=== PATIENT | female | born 1945 | race Caucasian/White ===

== ENCOUNTER 2018-07-16 10:00 | Outpatient (RCR) ==
--- NOTE | 2018-07-06 16:53 | RS.OPPTEV2 ---
Date of Note: 07/02/18 Visit #: 1 Number of visits approved by Insurance: NA Date of Evaluation: 07/02/18 Payer Source: MEDICARE Surgery Performed?: No Treatment Diagnosis: Back pain History of Condition/Mechanism of Injury:: Mrs. Kc reports back pain started approximately two months ago. Reports no known injury. Prior Level of Function.....Patient was independent with: ADL's, Self Care, Caregiving, Ambulation/Mobility, Community Integration/Access Functional Limitations: Sleep, Self Care, ADL's, Reaching, Pushing, Pulling, Lifting, Carrying, Sitting, Standing, Bending, Squatting, Ambulation, Community Access/Integration Current Subjective/complaints:: Mrs. Kc reports pain just started one morning when she was getting up out of bed. States her pain has gotten a little better since it first started. States it is like a "grabbing pain". States she can move a certain way and the pain with grab and then go away. She reports difficulty turning over in bed, getting up and down from a chair or bed. States sneezing or coughing reproduces the pain. She reports she has pain with standing and walking. She has tried a heating pad, without any benefit. Reports her pain is worse in the evening. She is taking a muscle relaxant and an anti-inflammatory. Treatment Side (optional): Right Medical History Medical History: Hypertension, Arthritis ("everywhere") Surgical History Comments:: Bilateral TKA Smoking Status: Former smoker Hx Home Medications: muscle relaxant, anti-inflammatory Patient's Goals: Her goal is to get relief of mid back pain. Pain Assessment - Pain Description Pain Location: right mid to lower thoracic spine Pain Description: Sharp Pain Description: "grabbing pain" Current Pain Intensity: 7/10 Worst Pain Intensity: 10/10 Functional Outcome Measure Oswestry LBP: 64 - G Codes & Severity Modifier G Codes & Modifier: NA Source of G Code score: NA Observation - Observation Posture: Forward Head, Rounded Shoulders, Increased Lumbar Lordosis Gait - Gait Pattern Gait Comments: Patient ambulates without an assistive device, independently with an antalgic gait. She demonstrates bilateral trunk lean with ambulation. She has to stop and holds to right mid-low back while walking in department. She demonstrates difficulty getting up and down from treatment table due to reports of severe pain in the right thoracic region. General Range of Motion: UE and LE AROM is WFL's. Rotation at the thoracic spine is more painful to her right. Also lateral flexion of the thoracic spine is more painful to the right. Muscle Strength: Bilateral hip strength 4 to 4+/5. Bilateral knees 4+/5, ankle 4+/5. Palpation Comments:: Marked tenderness with palpation to the right lower thoracic paraspinals and with Central PA's over the spinous processes of the mid to lower thoracic vertebrae. Demonstrates moderate increased muscle tone in bilateral lower thoracic and upper lumbar paraspinals. Sensation - Sensation Right Lower Extremity: Intact/Normal Left Lower Extremity: Intact/Normal - Treatment Modality: Ultrasound Parameters/Method Applied: X 12 mins to right thoracic paraspinals @ 1.5 w/cm continuous Patient Position: Left Sidelying Comments: Patient reports severe pain getting up and down from treatment table. Interventions - Exercise/Activities/Manual Therapy Exercises/Activities: None given today. following US, patient was advised to try ice pack/cold pack to her back over the weekend to see if it helps. Manual Therapy: NA - Charges Timed Code Treatment Minutes: 12 mins Total Treatment Time: 49 mins Procedures billed for this date of service:: DIEGO Zamora, US EVALUATION COMPLEXITY LEVEL EVALUATION COMPLEXITY LEVEL: HISTORY: Low, EXAM OF BODY SYSTEMS: Low, CLINICAL PRESENTATION: Low, CLINICAL DECISION MAKING: Low Assessment Assessment: Mrs. Kc presents to therapy with reports of mid right back pain. She reports severe, grabbing pain with certain movements. She is having difficulty walking very far and is unable to tolerate much activity due to this pain. She demonstrates signficant tenderness with palpation at the right mid- lower thoracic spine and paraspinals, along with moderate increased muscle guarding. She demonstrates potential to get relief of symptoms with modalities to reduce tenderness and muscle tone, and progressed to stretching exercises to resolve her pain. Patient Education: Education of diagnosis, Body/Joint mechanics, Activity Modification, Education of Plan of Care Rehab Potential: Good Short Term Goals Goal #1: Pt independent and compliant with HEP. Goal to be met by: 07/20/18 Goal #2: Tenderness along right thoracic paraspinals decreased to minimal. Goal to be met by: 07/20/18 Goal #3: Pt able to get up and down from treatment table w/ minimal difficulty. 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 Goal to be met by: 08/10/18 Goal #2: Score on Oswestry LBP scale improved to 40. Goal to be met by: 08/10/18 Goal #3: Pt able to walking community distances w/ minimal to no back pain. Goal to be met by: 08/10/18 Goal #4: Pt able to perform all selfcare and ADL's w/ min back pain. 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
--- NOTE | 2018-07-08 16:10 | RS.OPPTDN ---
Subjective Date of Note: 07/08/18 Visit #: 2 Number of visits approved by Insurance: na Date of Evaluation: 07/02/18 Payer Source: MEDICARE Treatment Diagnosis: Back pain Current Subjective/complaints:: Reports pain continues to limit her mobility and activity level. States she was unable to sleep after last session that aggravated back pain. Patient reports she is unable to clean her house and she sitting in a chair most of the day. Pain Assessment - Pain Description Pain Location: right mid and lowback Pain Description: Sharp, Aching Current Pain Intensity: mod to high - Treatment Modality: US with ES (Comb.) Parameters/Method Applied: [id number] US at 1.5w/cm2 and Estim at 13p.v. to the right mid and lower lumbar paraspinals. Patient Position: Left Sidelying - Heat/Cryotherapy Treatment: Hot Pack ([id number] to the lowback prior to USCOM. Patient in sitting. ) Interventions - Exercise/Activities/Manual Therapy Exercises/Activities: na Manual Therapy: 24mins soft tissue mobilization and myofascial massage to the right mid thoracic to the lumbar paraspinals with patient in left side-lying. Progressed to DTM with patient guarded at times due to pain. Patient unable to tolerate trigger point release due to pain. Total minutes of Manual Therapy: 24mins - Charges Timed Code Treatment Minutes: 38mins Total Treatment Time: 58mins Procedures billed for this date of service:: HP, USCOM, MT2 Assessment: Patient with pain that is limiting her functional activity level. She was unable to progress to exercise today. Patient Education: Body/Joint mechanics Short Term Goals Goal #1: Pt independent and compliant with HEP. Goal to be met by: 07/20/18 Goal #2: Tenderness along right thoracic paraspinals decreased to minimal. Goal to be met by: 07/20/18 Goal #3: Pt able to get up and down from treatment table w/ minimal difficulty. Goal to be met by: 07/20/18 Goal #4: Right shoulder Passive ER WFL's. 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 Goal to be met by: 08/10/18 Goal #2: Score on Oswestry LBP scale improved to 40. Goal to be met by: 08/10/18 Goal #3: Pt able to walking community distances w/ minimal to no back pain. Goal to be met by: 08/10/18 Goal #4: Pt able to perform all selfcare and ADL's w/ min back pain. Goal to be met by: 08/10/18 Plan Dates of Picking Crew Supervisor Goals: 08/10/18 Expiration date of current Insurance Approval:: 08/10/18 PLAN: Continue modalities and manual therapy, working toward exercise as tolerated.
--- NOTE | 2018-07-08 16:41 | RS.OPPTDN ---
Subjective Date of Note: 07/06/18 Visit #: 2 Number of visits approved by Insurance: NA Date of Evaluation: 07/02/18 Payer Source: MEDICARE Treatment Diagnosis: Back pain Current Subjective/complaints:: Mrs. Kc reports continued right sided back pain. States walking very far is "killing me". States pain still grabs her with movement, sneezing, or coughing. Reports significant pain with palpation and manual treatment during treatment today. Pain Assessment - Pain Description Pain Location: right lower thoracic spine Pain Description: Sharp Current Pain Intensity: mod to severe when pain hits her - Treatment Modality: Ultrasound Parameters/Method Applied: X 12 mins to right mid thoracic to upper lumbar paraspinals @ 1.8 w/cm2 continuous, then following manual therapy another 5 mins @ .8 w/cm2 continuous. 17 mins total Patient Position: Left Sidelying Interventions - Exercise/Activities/Manual Therapy Exercises/Activities: None given today. following US, patient was advised to try ice pack/cold pack to her back over the weekend to see if it helps. Manual Therapy: X 10 mins trigger point work and attempted DTM to right thoracic and upper lumbar paraspinals. Patient very guarded and reports significant pain at 2-3 different points to the right of the mid -lower thoracic spine over the paraspinals. - Charges Timed Code Treatment Minutes: 27 mins Total Treatment Time: 27 mins Procedures billed for this date of service:: US, manual therapy Assessment: Shalonda continues to report grabbing pain at the right thoracic spine. She exhibited difficulty tolerating manual therapy to that area due to tenderness along the thoracic paraspinals. I will see how she felt following today's treatment to determine how we will contine her treatment on her next visit. Patient Education: Education of diagnosis, Body/Joint mechanics, Home Safety, Activity Modification, Education of Plan of Care Short Term Goals Goal #1: Pt independent and compliant with HEP. Goal to be met by: 07/20/18 Goal #2: Tenderness along right thoracic paraspinals decreased to minimal. Goal to be met by: 07/20/18 Goal #3: Pt able to get up and down from treatment table w/ minimal difficulty. Goal to be met by: 07/20/18 Goal #4: Right shoulder Passive ER WFL's. Goal to be met by: 06/17/13 Progress towards Goal:: Met [facility] Goals Goal #1: Pt knows HEP and to continue ex's to maintain functional level at D/C. Goal to be met by: 08/10/18 Goal #2: Score on Oswestry LBP scale improved to 40. Goal to be met by: 08/10/18 Goal #3: Pt able to walking community distances w/ minimal to no back pain. Goal to be met by: 08/10/18 Goal #4: Pt able to perform all selfcare and ADL's w/ min back pain. Goal to be met by: 08/10/18 Plan Dates of [facility] Goals: 08/10/18 Expiration date of current Insurance Approval:: NA PLAN: Continue treatment with modalities and manual therapy and exercises as tolerated.
--- NOTE | 2018-07-13 15:01 | RS.OPPTDN ---
Subjective Date of Note: 07/13/18 Visit #: 4 Number of visits approved by Insurance: na Date of Evaluation: 07/02/18 Payer Source: MEDICARE Treatment Diagnosis: Back pain Current Subjective/complaints:: Patient reports "feeling good" the entire day following last treatment, and sleeping all through the night that night. Reports pain increased again the next morning, but she is hopeful treatment will continue to help. Pain Assessment - Pain Description Pain Location: right lower thoracic and upper lumbar paraspinals and into flank area Current Pain Intensity: moderate, increases with movement - Treatment Modality: Electrical Stim Unattended Parameters/Method Applied: [id number] HVGC to 115-125p.v. with 4 large pads cross current to the right lower thoracic and upper lumbar paraspinals with HP prior to MT. Patient Position: Sitting - Heat/Cryotherapy Treatment: Hot Pack (with Extim ) Interventions - Exercise/Activities/Manual Therapy Exercises/Activities: NA Manual Therapy: [id number] Soft tissue and attempted DTM. Increased trigger point work along the right lumbar paraspinals. Multiple points along the right lumbar and low thoracic paraspinals that are painful again today. Total minutes of Manual Therapy: 26mins - Charges Timed Code Treatment Minutes: 26mins Total Treatment Time: 48mins Procedures billed for this date of service:: HP, Estim unattended, MT2 Assessment: Patient responded well to last treatment with report of decreased pain and ability to sleep all night. Patient Education: Education of diagnosis, Body/Joint mechanics, Home Safety, Activity Modification Short Term Goals Goal #1: Pt independent and compliant with HEP. Goal to be met by: 07/20/18 Goal #2: Tenderness along right thoracic paraspinals decreased to minimal. Goal to be met by: 07/20/18 Goal #3: Pt able to get up and down from treatment table w/ minimal difficulty. Goal to be met by: 07/20/18 Goal #4: Right shoulder Passive ER WFL's. 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 Goal to be met by: 08/10/18 Goal #2: Score on Oswestry LBP scale improved to 40. Goal to be met by: 08/10/18 Goal #3: Pt able to walking community distances w/ minimal to no back pain. Goal to be met by: 08/10/18 Goal #4: Pt able to perform all selfcare and ADL's w/ min back pain. Goal to be met by: 08/10/18 Plan Dates of Hand Former Helper Goals: 08/10/18 Expiration date of current Insurance Approval:: 08/10/18 PLAN: Continue and progress toward HEP to increase functional activity level.
--- NOTE | 2018-07-16 16:27 | RS.OPPTDN ---
Subjective Date of Note: 07/16/18 Visit #: 5 Number of visits approved by Insurance: na Date of Evaluation: 07/02/18 Payer Source: MEDICARE Treatment Diagnosis: Back pain Current Subjective/complaints:: Patient reports last session reduced her pain all evening and through the next day. States she was able to tolerate manual therapy better today. Pain Assessment - Pain Description Pain Location: right mid to lowback Pain Description: Tightness, Sharp, Aching Current Pain Intensity: 8 - Treatment Modality: Electrical Stim Unattended Parameters/Method Applied: [id number] HVGC to 170p.v. to bilateral lower lumbar paraspinals and lower right thoracic paraspinals with HP prior to MT. Patient Position: Sitting - Heat/Cryotherapy Treatment: Hot Pack (with Estim) Interventions - Exercise/Activities/Manual Therapy Exercises/Activities: NA Manual Therapy: [id number] Soft tissue and attempted DTM. Trigger point work along the lumbar paraspinals, with focus on right. Total minutes of Manual Therapy: 28mins - Charges Timed Code Treatment Minutes: 28mins Total Treatment Time: 50mins Procedures billed for this date of service:: HP, Estim unattended, MTx2 Assessment: Patient reporting improvement in ability to sleep at night and one day of pain reduction following last treatment. Short Term Goals Goal #1: Pt independent and compliant with HEP. Goal to be met by: 07/20/18 Goal #2: Tenderness along right thoracic paraspinals decreased to minimal. Goal to be met by: 07/20/18 Progress towards Goal:: Progressing Goal #3: Pt able to get up and down from treatment table w/ minimal difficulty. Goal to be met by: 07/20/18 Goal #4: Right shoulder Passive ER WFL's. Goal to be met by: 06/17/13 Progress towards Goal:: Met [facility] Goals Goal #1: Pt knows HEP and to continue ex's to maintain functional level at D/C. Goal to be met by: 08/10/18 Goal #2: Score on Oswestry LBP scale improved to 40. Goal to be met by: 08/10/18 Goal #3: Pt able to walking community distances w/ minimal to no back pain. Goal to be met by: 08/10/18 Progress towards goal: Progressing Goal #4: Pt able to perform all selfcare and ADL's w/ min back pain. Goal to be met by: 08/10/18 Plan Dates of Senior Living Goals: 08/10/18 Expiration date of current Insurance Approval:: 08/10/18 PLAN: Continue modaliteis and manual therapy to reduce pain and increase functional activity level.
== END 2018-07-16 23:59 ==
DX: M54.5 Low back pain (principal)